=== PATIENT | male | born 2000 | race American Indian/Alaskan Native ===

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

== ENCOUNTER 2021-03-02 00:53 | Emergency (ER) | payer SELFPAY ==
[2021-03-02 01:03] VITALS: BP 146/81
--- NOTE | 2021-03-02 01:35 | Emergency Department Report ---
ED ENT HPI - General Chief complaint: Sore Throat Stated complaint: STD/STI Time Seen by Provider: 03/02/21 01:06 Source: patient Mode of arrival: Ambulatory Limitations: No Limitations - History of Present Illness Initial comments: Patient is a 20-year-old male presents emergency room with complaints of sore throat that began approximately a week ago. Patient has discomfort with swallowing. He is able to tolerate p.o. intake and his secretions. He denies any fever, chills, vomiting, diarrhea, ear pain, cough, shortness of breath. Patient states that he performed oral intercourse before symptoms began. No past medical history. No allergies to medications - Related Data Previous Rx's Medication Instructions Recorded Last Taken Type Amoxicillin/Potassium Clav 1 each PO BID 10 Days #20 tablet 03/02/21 Unknown Rx [Augmentin 875-125 Tablet] Doxycycline Hyclate [Doxycycline 100 mg PO BID 7 Days #14 tab 03/02/21 Unknown Rx Hyclate TAB] Allergies Allergy/AdvReac Type Severity Reaction Status Date / Time No Known Allergies Allergy Unverified 09/06/17 17:29 ED Dental HPI - General Chief complaint: Sore Throat Stated complaint: STD/STI Time Seen by Provider: 03/02/21 01:06 Source: patient Mode of arrival: Ambulatory Limitations: No Limitations - Related Data Previous Rx's Medication Instructions Recorded Last Taken Type Amoxicillin/Potassium Clav 1 each PO BID 10 Days #20 tablet 03/02/21 Unknown Rx [Augmentin 875-125 Tablet] Doxycycline Hyclate [Doxycycline 100 mg PO BID 7 Days #14 tab 03/02/21 Unknown Rx Hyclate TAB] Allergies Allergy/AdvReac Type Severity Reaction Status Date / Time No Known Allergies Allergy Unverified 09/06/17 17:29 ED Review of Systems ROS: Stated complaint: STD/STI Other details as noted in HPI Comment: All other systems reviewed and negative ED Past Medical Hx - Past Medical History Previous Medical History?: No - Surgical History Past Surgical History?: No - Social History Smoking Status: Current Every Day Smoker Substance Use Type: None - Medications Home Medications: Home Medications Medication Instructions Recorded Confirmed Last Taken Type Amoxicillin/Potassium Clav 1 each PO BID 10 Days #20 tablet 03/02/21 Unknown Rx [Augmentin 875-125 Tablet] Doxycycline Hyclate [Doxycycline 100 mg PO BID 7 Days #14 tab 03/02/21 Unknown Rx Hyclate TAB] ED Physical Exam - General Limitations: No Limitations General appearance: alert, in no apparent distress - Head Head exam: Present: atraumatic, normocephalic - Eye Eye exam: Present: normal appearance - ENT ENT exam: Present: other (posterior oropharnx erythema, mild right tonsillar hypertrophy, exudates present, uvula is midline, no uvular edema or deviation, no trismus, no tongue elevation, no muffled voice, no submandibular edema) - Respiratory Respiratory exam: Absent: respiratory distress, accessory muscle use - Neurological Exam Neurological exam: Present: alert, oriented X3 - Psychiatric Psychiatric exam: Present: normal affect, normal mood - Skin Skin exam: Present: warm, dry, intact ED Course Vital Signs 03/02/21 01:00 Temperature 98.1 F Pulse Rate 94 H Respiratory 18 Rate Blood Pressure 146/81 O2 Sat by Pulse 100 Oximetry ED Medical Decision Making - Medical Decision Making Patient is a 20-year-old male presents emergency room with complaints of sore throat that began approximately a week ago. Patient has discomfort with swallowing. He is able to tolerate p.o. intake and his secretions. He denies any fever, chills, vomiting, diarrhea, ear pain, cough, shortness of breath. Patient states that he performed oral intercourse before symptoms began. No past medical history. No allergies to medications. Vitals are stable. On exam:posterior oropharnx erythema, mild right tonsillar hypertrophy, exudates present, uvula is midline, no uvular edema or deviation, no trismus, no tongue elevation, no muffled voice, no submandibular edema. Examination appears consistent with tonsillitis, could possibly be early peritonsillar abscess/cellulitis, there is no uvular shift, no respiratory distress, no airway compromise. Rapid strep is negative. Due to patient's concerns for STDs, patient given ceftriaxone and prescription for doxycycline. patient also given prescription for Augmentin. Advised patient Please take medication as prescribed. follow up with an ear nose and throat doctor. Follow-up with the clinic or the health department to have a full STD panel. Please have any partner tested and treated as well. Avoid sexual intercourse. Return to emergency room for any new or worsening symptoms. Critical care attestation.: If time is entered above; I have spent that time in minutes in the direct care of this critically ill patient, excluding procedure time. ED Disposition Clinical Impression: Tonsillitis, Concern about STD in male without diagnosis Disposition: 01 HOME / SELF CARE / HOMELESS Is pt being admited?: No Does the pt Need Aspirin: No Condition: Stable Instructions: Tonsillitis, [id number] Additional Instructions: Please take medication as prescribed. follow up with an ear nose and throat doctor. Follow-up with the clinic or the health department to have a full STD panel. Please have any partner tested and treated as well. Avoid sexual intercourse. Return to emergency room for any new or worsening symptoms. Prescriptions: Amoxicillin/Potassium Clav [Augmentin 875-125 Tablet] 1 each PO BID 10 Days #20 tablet Doxycycline Hyclate [Doxycycline Hyclate TAB] 100 mg PO BID 7 Days #14 tab Referrals: [facility] [Provider Group] - 3-5 Days [facility] [Outside] - 3-5 Days BAMBI PATEL MD [Staff Physician] - 3-5 Days JAGRUTI FRANZ MD [Referring] - 3-5 Days Forms: Work/School Release Form(ED) Time of Disposition: 02:02 Print Language: YI
[2021-03-02] MEDS ORDERED: LIDOCAINE-MPF (1%) 10 MG/1 ML VIAL 5 ML INFILTRATI ONE (02:01)
== END 2021-03-02 02:29 | disposition home or self-care (01) ==
LOC: ED 00:53
DX: J03.90 Acute tonsillitis, unspecified (principal); Z20.2 Contact with and (suspected) exposure to infections with a predominantly sexual mode of transmission; F17.200 Nicotine dependence, unspecified, uncomplicated
CPT/HCPCS: 87116; 87430; 96372; 99283; J0696; J3490